=== PATIENT | female | born 1980 | race Caucasian/White ===

== ENCOUNTER 2018-04-08 20:32 | Emergency (ER) | payer BC ==
[~2018-04-08] VITALS: Ht 149.9 cm; Wt 53.1 kg
[2018-04-08 20:58] VITALS: Ht 149.9 cm; Wt 53.1 kg
[2018-04-08 22:07] LABS: PLATELET COUNT 248 x10^3mcL (130-400); RED CELL DISTRIBUTION WIDTH 12.3 % (11.5-14.5)
[2018-04-08 22:14] LABS: CARBON DIOXIDE 25.7 mmol/L (21-32); CHLORIDE SERUM 106 mmol/L (98-107); CREATININE SERUM 0.8 mg/dL (0.6-1.0); GFR1 > 60 mL/min; GLUCOSE SERUM 96 mg/dL (74-106); POTASSIUM SERUM 3.4 mmol/L (3.5-5.1); SODIUM SERUM 140 mmol/L (136-145)
[2018-04-08 22:20] LABS: ALBUMIN 4.5 g/dL (3.4-5.0); ALKALINE PHOSPHATASE 62 U/L (46-116); ALT/SGPT 22 U/L (14-59); AST/SGOT 11 U/L (15-37); BILIRUBIN TOTAL 0.2 mg/dL (0.20-1.00); TOTAL PROTEIN, SERUM 8.2 g/dL (6.4-8.2)
[2018-04-08 23:01] LABS: UA SPECIFIC GRAVITY >=1.030 (1.005-1.035); microscopic required? YES; urine erythrocyte TRACE (NEGATIVE)
[2018-04-08 23:21] VITALS: BP 114/67
== END 2018-04-08 23:21 | disposition home or self-care (01) ==
LOC: ED 20:32
PROVIDERS: Emergency Medicine
DX: N39.0 Urinary tract infection, site not specified (principal); S39.011A Strain of muscle, fascia and tendon of abdomen, initial encounter; X58.XXXA Exposure to other specified factors, initial encounter; Y93.89 Activity, other specified; Y92.89 Other specified places as the place of occurrence of the external cause; Y99.8 Other external cause status
CPT/HCPCS: J1885; Q0092